=== PATIENT | male | born 1990 | race Caucasian/White ===

== ENCOUNTER 2018-07-11 23:35 | Emergency (ER) | payer OTHER ==
[2018-07-11 23:46] VITALS: BP 133/89
[2018-07-12] MEDS ORDERED: Ketorolac TAB * 10 MG TAB PO PRN (00:27)
[2018-07-12] MEDS ORDERED: Metoclopramide TAB* 10 MG PO ONE (00:27)
[2018-07-12] MEDS ORDERED: diPHENhydraMINE PO* 25 MG PO ONE (00:27)
--- NOTE | 2018-07-12 00:35 | ED ---
Headache - HPI Summary HPI Summary: Patient complains of constant headache 3 days, associated lightheadedness and nausea, photophobia. History of occasional headache, usually frontal. Current Headache described as throbbing, starting in the occiput bilaterally and radiating forward bilaterally. Patient was glasses, states new prescription past winter. Has taken Tylenol with temporary relief. Has seen primary care and was diagnosed with muscular pain in the neck. Denies fever, neck stiffness or pain, focal deficits, AMS, cough, sore throat, CP, SOB, V/D, abdominal pain, change in urine, change in BM. Medical history is ADHD. - History Of Current Complaint Chief Complaint: EDHeadache Stated Complaint: HEADACHE FOR 3DAYS Time Seen by Provider: 07/12/18 00:15 Hx Obtained From: Patient Onset/Duration: Gradual Onset Initially Headache Was: Moderate Currently Pain Is: Moderate Timing: Constant Character: Throbbing Location of Headache: Parietal, Occipital Aggravating Factor: Nothing Allevating Factors: Medication Associated Signs And Symptoms: Nausea - Allergies/Home Medications Allergies/Adverse Reactions: Allergies Allergy/AdvReac Type Severity Reaction Status Date / Time No Known Allergies Allergy Verified 07/11/18 23:46 Home Medications: Home Medications Dextroamphetamine/Amphetamine [Adderall Xr 20 mg Capsule] 20 mg PO DAILY [History Confirmed 07/12/18] PMH/Surg Hx/FS Hx/Imm Hx Endocrine/Hematology History: Denies: Hx Anticoagulant Therapy Cardiovascular History: Denies: Hx Cardiac Arrest History: Denies: Hx Dialysis Neurological History: Denies: Hx CVA Infectious Disease History: No Infectious Disease History: Denies: Traveled Outside the [place] in Last 30 Days - Social History Alcohol Use: Occasionally Substance Use Type: Reports: None Smoking Status (MU): Never Smoked Tobacco Review of Systems Constitutional: Negative Positive: Photophobia ENT: Negative Cardiovascular: Negative Respiratory: Negative Positive: Nausea Genitourinary: Negative Musculoskeletal: Negative Skin: Negative Positive: Headache Psychological: Normal All Other Systems Reviewed And Are Negative: Yes Physical Exam - Summary Physical Exam Summary: Neuro exam normal. No paraspinal tenderness along C-spine or back. No tenderness to palpation of trapezius bilaterally. No neck stiffness or pain with rotation, flexion or extension. Negative Kernig's, negative Brudzinski. No pain with palpation of abdomen. Triage Information Reviewed: Yes Vital Signs On Initial Exam: Initial Vitals Temp Pulse Resp BP Pulse Ox 97.2 F 62 16 133/89 98 07/11/18 23:40 07/11/18 23:40 07/11/18 23:40 07/11/18 23:40 07/11/18 23:40 Vital Signs Reviewed: Yes Appearance: Positive: Well-Appearing Skin: Positive: Warm Head/Face: Positive: Normal Head/Face Inspection Eyes: Positive: Normal Neck: Positive: Supple Respiratory/Lung Sounds: Positive: Clear to Auscultation Cardiovascular: Positive: Normal Abdomen Description: Positive: Nontender Musculoskeletal: Positive: Normal Neurological: Positive: Normal Psychiatric: Positive: Normal AVPU Assessment: Alert - Lion Coma Scale Best Eye Response: 4 - Spontaneous Best Motor Response: 6 - Obeys Commands Best Verbal Response: 5 - Oriented Coma Scale Total: 15 Diagnostics - Vital Signs Vital Signs Temp Pulse Resp BP Pulse Ox 07/11/18 23:40 97.2 F 62 16 133/89 98 - Laboratory Lab Statement: Any lab studies that have been ordered have been reviewed, and results considered in the medical decision making process. Headache Course/Dx - Course Course Of Treatment: Patient complains of constant headache 3 days, associated lightheadedness and nausea, photophobia. History of occasional headache, usually frontal. Current Headache described as throbbing, starting in the occiput bilaterally and radiating forward bilaterally. Patient was glasses, states new prescription past winter. Has taken Tylenol with temporary relief. Has seen primary care and was diagnosed with muscular pain in the neck. Denies fever, neck stiffness or pain, focal deficits, AMS, cough, sore throat, CP, SOB , V/D, abdominal pain, change in urine, change in BM. Medical history is ADHD. Physical exam:Neuro exam normal. No paraspinal tenderness along C-spine or back. No tenderness to palpation of trapezius bilaterally. No neck stiffness or pain with rotation, flexion or extension. Negative Kernig's, negative Brudzinski. No pain with palpation of abdomen. Vital signs within normal limits. Headache pain improved from 8 out of 10-4 out of 10 with migraine cocktail. Admitted Imitrex 50mg - Diagnoses Provider Diagnoses: Migraine Discharge - Sign-Out/Discharge Documenting (check all that apply): Patient Departure - Discharge Plan Condition: Stable Disposition: HOME Patient Education Materials: Migraine Headache (ED) Referrals: Liz Parra MD [Primary Care Provider] - Additional Instructions: Follow-up with primary care. Return to the ED for any new or worsening symptoms. - Billing Disposition and Condition Condition: STABLE Disposition: Home
[2018-07-12] MEDS ORDERED: Ketorolac TAB * 10 MG TAB PO ONE (00:42)
[2018-07-12] MEDS ORDERED: SUMAtriptan TAB* 50 MG PO ONE ×2 (01:34→02:10)
== END 2018-07-12 02:12 | disposition home or self-care (01) ==
LOC: ED 23:35
DX: G43.909 Migraine, unspecified, not intractable, without status migrainosus (principal); H53.149 Visual discomfort, unspecified; R11.0 Nausea
CPT/HCPCS: 99282; A9270-GY

== ENCOUNTER 2019-10-03 15:07 | Emergency (ER) | payer OTHER ==
[2019-10-03] MEDS ORDERED: STERILE WATER FOR INJ INJ ONE (15:19)
--- NOTE | 2019-10-03 15:19 | ED ---
Laceration/Wound HPI - HPI Summary HPI Summary: 29 year old male presents with left index finger laceration today. He states he cut it on a table saw. There is no active bleeding. Tetanus up-to-date. He has no medical conditions. He has severe pain to his finger. Has range of motion of the finger. No numbness or tingling. He is right-handed. He works on computers. he also has an avulsion of left middle finger. - History of Current Complaint Stated Complaint: LT POINTER FINGER LAC PER PT Time Seen by Provider: 10/03/19 15:13 Pain Intensity: 10 - Allergy/Home Medications Allergies/Adverse Reactions: Allergies Allergy/AdvReac Type Severity Reaction Status Date / Time No Known Allergies Allergy Verified 07/11/18 23:46 PMH/Surg Hx/FS Hx/Imm Hx Endocrine/Hematology History: Denies: Hx Anticoagulant Therapy Cardiovascular History: Denies: Hx Cardiac Arrest History: Denies: Hx Dialysis Neurological History: Denies: Hx CVA Infectious Disease History: No Infectious Disease History: Denies: Traveled Outside the [place] in Last 30 Days - Family History Known Family History: Positive: Non-Contributory - Social History Alcohol Use: Occasionally Substance Use Type: Reports: None Smoking Status (MU): Never Smoked Tobacco Review of Systems Negative: Fever Negative: Chest Pain Negative: Shortness Of Breath Positive: Other - laceration to left index finger All Other Systems Reviewed And Are Negative: Yes Physical Exam Triage Information Reviewed: Yes Vital Signs On Initial Exam: Initial Vitals Temp Pulse Resp BP Pulse Ox 96.5 F 85 18 121/88 100 10/03/19 15:09 10/03/19 15:09 10/03/19 15:09 10/03/19 15:09 10/03/19 15:09 Vital Signs Reviewed: Yes Appearance: Positive: Well-Appearing Skin: Positive: Warm, Dry, Other - 4cm by 1/2cm irregular laceration to distal phalanx of left index finger near nail Head/Face: Positive: Normal Head/Face Inspection Eyes: Positive: Normal, Conjunctiva Clear ENT: Positive: Pharynx normal Respiratory/Lung Sounds: Positive: Clear to Auscultation, Breath Sounds Present Cardiovascular: Positive: Normal, RRR Musculoskeletal: Positive: Strength/ROM Intact - left index finger, Other - good pulses Neurological: Positive: Normal Psychiatric: Positive: Normal Procedures - Sedation Patient Received Moderate/Deep Sedation with Procedure: No - Laceration/Wound Repair 1 Location: Other - left index finger Description: Irregular Anesthesia: Digital Length, Depth and Shape: 4cm by 1cm irregular Irrigated w/ Saline (ccs): 1,000 Closure: Single Layer Debridement: minimal Suture Type: Prolene Number of Sutures: 6 Sterile Dressing Applied?: Yes - xeroform, telfa, coband and foam finger splint Diagnostics - Vital Signs Vital Signs Temp Pulse Resp BP Pulse Ox 10/03/19 15:09 96.5 F 85 18 121/88 100 - Laboratory Lab Statement: Any lab studies that have been ordered have been reviewed, and results considered in the medical decision making process. - Radiology finger Radiology Interpretation Completed By: Radiologist Summary of Radiographic Findings: IMPRESSION: COMMINUTED FRACTURE OF THE TUFT OF THE DISTAL PHALANX OF THE SECOND DIGIT Laceration Repair Course/Dx - Course Course Of Treatment: 29 year old male presents with left index finger laceration today. He states he cut it on a table saw. There is no active bleeding. Tetanus up-to-date. He has no medical conditions. He has severe pain to his finger. Has range of motion of the finger. No numbness or tingling. He is right-handed. He works on computers. he also has an avulsion of left middle finger. On exam has 4cm by 1/2cm irregular laceration of the distal phalanx of left index finger. xray shows fracture of tuft. gave dose of ancef. cleaned area and placed [address] on keflex. told follow up with ortho. patient understand and agrees with plan. - Differential Dx Differental Diagnoses: Avulsion, Fracture, Laceration - Clinical Impression Provider Diagnoses: Open fracture of tuft of distal phalanx of finger, Laceration of left index finger Discharge ED - Sign-Out/Discharge Documenting (check all that apply): Patient Departure - Discharge Plan Condition: Good Disposition: HOME Prescriptions: Cephalexin CAP* [Keflex CAP*] 500 mg PO BID #14 cap oxyCODONE/Acetamin 5/325 MG* [Percocet 5/325 TAB*] 1 tab PO Q6H PRN #12 tab MDD 4 PRN Reason: Pain - Severe Patient Education Materials: Care For Your Stitches (ED), Finger Fracture (ED) Referrals: Liz Parra MD [Primary Care Provider] - Beth Stout MD [Medical Doctor] - Additional Instructions: Take Keflex twice a day for 7 days change dressing once a day Take Tylenol or ibuprofen for pain every 6 hours, use percocet every 6 hours for severe pain Return to ED or primary for suture removal in 8-10 days Follow up with ortho Return to ED if develop signs of infection such as fever, spreading redness, or pus formation or any new or worsening symptoms - Billing Disposition and Condition Condition: GOOD Disposition: Home
[2019-10-03] MEDS ORDERED: Lidocaine 1% MPF ** 5 ML VIAL INJ ONE (15:22)
[2019-10-03] MEDS ORDERED: ceFAZolin 500 MG VIAL(*) 500 MG VIAL IM ONE (16:24)
[2019-10-03] MEDS ORDERED: oxyCODONE/Acetamin 5/325 MG* TAB PO ONE (16:24)
[2019-10-03] MEDS ORDERED: Sterile Water for Inj* 10 ML ONE (16:41)
[2019-10-03 16:49] VITALS: BP 133/87
== END 2019-10-03 16:48 | disposition home or self-care (01) ==
LOC: ED 15:07
DX: S62.631B Displaced fracture of distal phalanx of left index finger, initial encounter for open fracture (principal); W31.2XXA Contact with powered woodworking and forming machines, initial encounter; Y92.9 Unspecified place or not applicable
CPT/HCPCS: 12002; 73140; 96372; 99282; A9270-GY; J0690

== ENCOUNTER 2023-05-20 16:28 | Observation (INO) ==
[2023-05-20] MEDS ORDERED: NS 0.9% 1000 ml BAG 1,000 ML IV ONE (17:09)
[2023-05-20] MEDS ORDERED: Morphine 4 MG/ML VIAL (1 ml) IV ONE (17:09)
[2023-05-20] MEDS ORDERED: Ondansetron 4 mg VIAL 2 MG/ML 2 ml VIAL IV ONE (17:09)
[2023-05-20 17:53] LABS: ABS Eosinophils 0.1 10^3/uL (0.0-0.5); ABS Lymphocytes 0.2 10^3/uL (1.0-4.8); ABS Monocytes 0.7 10^3/uL (0.0-1.1); ABS Neutrophils 8.7 10^3/uL (1.5-7.6); Eosinophil % 0.7 %; Hematocrit 46.9 % (38-53); Lymphocyte % 2.5 %; Mean Corpuscular Hemoglobin 29.9 pg (27-33); Mean Corpuscular Volume 87.9 fL (80-97); Mean Platelet Volume 9.8 fL (7.5-11.2); Platelet Count 235 10^3/uL (150-450); Red Blood Count 5.34 10^6/uL (4.06-5.63); Red Cell Distribution Width 14.9 % (12-17); White Blood Count 9.7 10^3/uL (3.6-10.2)
[2023-05-20 18:05] LABS: INR 1.23 (0.83-1.13)
[2023-05-20 18:09] LABS: ALT 119 U/L (7-52); Albumin 4.8 g/dL (3.2-5.2); Albumin/Globulin Ratio 1.3 (1-3); Alkaline Phosphatase 91 U/L (35-149); Blood Urea Nitrogen 13 mg/dL (6-24); C Reactive Protein 75.92 mg/L (<8.01); CO2 Carbon Dioxide 18 mmol/L (22-32); Calcium 9.4 mg/dL (8.6-10.3); Chloride 98 mmol/L (101-111); Creatinine, Serum 0.98 mg/dL (0.67-1.17); Globulin 3.7 g/dL (2-4); Glucose 77 mg/dL (70-100); Sodium 134 mmol/L (135-145); Total Protein 8.5 g/dL (6.4-8.9); eGFR CKD-EPI 103.1 (>60)
[2023-05-20 18:19] LABS: Anion Gap 18 mmol/L (2-16)
[2023-05-20 20:52] LABS: Magnesium 1.8 mg/dL (1.9-2.7); Phosphorus 2.9 mg/dL (2.5-5.0); Potassium Redraw 4.2 mmol/L (3.5-5.0)
[2023-05-20] MEDS ORDERED: Iohexol 350 (CONTRAST) 500 ML MDV IV ONE (22:02)
[2023-05-21] MEDS ORDERED: oxyCODONE/Acetamin 5/325 mg TAB PO PRN (00:38)
[2023-05-21] MEDS ORDERED: Ondansetron 4 mg VIAL 2 MG/ML 2 ml VIAL IV PRN (00:38)
[2023-05-21] MEDS: Lactated Ringers 1000 ml BAG 1,000 ML IV SCH ×2 (02:57→14:05)
[2023-05-21] MEDS: Heparin 5000 UNITS/ML 1 mL VIAL SUBCUT SCH ×2 (05:55→14:06)
[2023-05-21 08:52] LABS: ABS Eosinophils 0.1 10^3/uL (0.0-0.5); ABS Lymphocytes 0.5 10^3/uL (1.0-4.8); ABS Monocytes 1.1 10^3/uL (0.0-1.1); ABS Neutrophils 2.8 10^3/uL (1.5-7.6); ABS Nucleated RBC 0.01 10^3/ul; Eosinophil % 1.3 %; Hematocrit 43.3 % (38-53); Hemoglobin 14.7 g/dL (13.2-16.3); Lymphocyte % 10.9 %; Mean Corpuscular Hemoglobin 29.7 pg (27-33); Mean Corpuscular Hgb Conc 33.9 g/dL (31-36); Mean Corpuscular Volume 87.7 fL (80-97); Mean Platelet Volume 9.5 fL (7.5-11.2); Nucleated Red Blood Cells % 0.1 /100 WBC (0.0-0.4); Platelet Count 188 10^3/uL (150-450); Red Blood Count 4.94 10^6/uL (4.06-5.63); Red Cell Distribution Width 15.1 % (12-17); White Blood Count 4.4 10^3/uL (3.6-10.2)
[2023-05-21] MEDS ORDERED: Thiamine 100 MG/ML 2 ml VIAL 100 MG, Folic Acid IV 1 MG, Multiple Vitamin IV ADULT 10 M... IV ONE (09:07)
[2023-05-21 09:09] LABS: Albumin 3.9 g/dL (3.2-5.2); Albumin/Globulin Ratio 1.2 (1-3); Creatinine, Serum 0.94 mg/dL (0.67-1.17); Globulin 3.3 g/dL (2-4); Magnesium 1.9 mg/dL (1.9-2.7); Potassium 3.9 mmol/L (3.5-5.0); Total Protein 7.2 g/dL (6.4-8.9); eGFR CKD-EPI 108.4 (>60)
[2023-05-21 09:28] LABS: Urine Appearance Clear; Urine Bilirubin Negative (Negative); Urine Blood Negative (Negative); Urine Color Amber; Urine Glucose Negative (Negative); Urine Ketones 2+ (Negative); Urine Nitrite Negative (Negative); Urine Protein 1+(30 mg/dL) (Negative); Urine Specific Gravity 1.038 (1.002-1.030); Urine Urobilinogen Positive (Negative)
[2023-05-21] MEDS ORDERED: Amphetamine MIXED SALT 10mgTAB PO SCH (09:30)
[2023-05-21 09:37] LABS: Urine Bacteria Absent (Absent); Urine Red Blood Cell Trace(0-2/hpf) (Absent); Urine White Blood Cell Trace(0-5/hpf) (Absent)
[2023-05-21] MEDS ORDERED: Lactated Ringers 1000 ml BAG 1,000 ML IV SCH ×2 (10:00)
[2023-05-21 14:18] VITALS: BP 134/85
== END 2023-05-21 17:15 | disposition home or self-care (01) ==
LOC: EDHOLD 16:28 → ED 16:28 → SSU 20:10
PROVIDERS: ADMIT Surgery; ATTEND Surgery